=== PATIENT | male | born 1990 | race Hispanic/Latino ===

== ENCOUNTER 2018-11-02 14:35 | Day surgery (SDC) | payer SELFPAY ==
[~2018-11-02 14:35] MED LIST: Dexamethasone 20 MG/5 ML VIAL ONE; Glycopyrrolate 0.2 MG/ML 5 ML SYRINGE ONE; Ketorolac Tromethamine 30 MG/ML VIAL ONE; Ondansetron PF 4 MG/2 ML Vial ONE; PROPOFOL 200 MG/20 ML VIAL ONE; Rocuronium Bromide 10 MG/ML (10ML VIAL) ONE
[2018-11-02] MEDS ORDERED: ISOVUE-370 76%-LOCM 1 ML ONE (15:10)
[2018-11-02 15:47] LABS: #Basophils 0.1 thou/uL (0.0-0.2); #Eosinphils 0.2 thou/uL (0.0-0.7); #Lymphocytes 2.6 thou/uL (1.20-3.40); #Monocytes 0.5 thou/uL (0.11-0.59); #Neutrophils 4.7 thou/uL (1.40-6.50); %Basophils 1.2 % (0.0-1.0); %Eosinophils 2.9 % (0.0-10.0); %Lymphocytes 31.7 % (21.0-51.0); %Neutrophils 58.2 % (42.0-75.0); Mean Corpuscular HGB CONC 34.6 g/dL (32.0-36.0); Mean Corpuscular Hemoglobin 30.7 pg (27.0-31.0); Mean Corpuscular Volume 88.7 fL (78.0-98.0); Mean Platelet Volume 7.1 fL (7.4-10.4); Platelet Count 276 thou/uL (130-400); RBC Distribution Width 12.2 % (11.5-14.5); Red Blood Cell (RBC) Count 5.23 mill/uL (4.70-6.10); White Blood Cell (WBC) Count 8.1 thou/uL (4.8-10.8)
[2018-11-02 16:13] LABS: ALT (SGPT) 31 U/L (8-55); AST (SGOT) 28 U/L (5-34); Albumin 4.4 g/dL (3.5-5.0); Alkaline Phosphatase 122 U/L (40-150); Anion Gap 13 mmol/L (10-20); BUN (Urea Nitrogen) 13 mg/dL (8.9-20.6); Bilirubin, Total 0.6 mg/dL (0.2-1.2); Calc. Creatinine Clearance 0 mL/min (70-130); Calcium 9.5 mg/dL (7.8-10.44); Carbon Dioxide 25 mmol/L (22-29); Chloride 102 mmol/L (98-107); Estimated GFR-MDRD 85; Globulin 3.4 g/dL (2.4-3.5); Glucose 102 mg/dL (70-105); Lipase 33 U/L (8-78); Protein, Total 7.8 g/dL (6.0-8.3); Sodium 136 mmol/L (136-145)
[2018-11-02] MEDS ORDERED: Morphine 4 MG/ML VIAL ONE (16:50)
[2018-11-02] MEDS ORDERED: Ondansetron PF 4 MG/2 ML Vial ONE (16:50)
--- NOTE | 2018-11-02 17:37 | CT ---
FEXAM: Abdomen and pelvic CT scan with contrast: Enteric contrast not administered, precluding reliable assessment of bowel HISTORY: Lower abdominal pain COMPARISON: None FINDINGS: Mild volume loss is present at the lung bases Liver: Unremarkable. Gallbladder:Unremarkable. Pancreas:Unremarkable Spleen:Unremarkable. Adrenal glands:Unremarkable. Kidneys:No renal calculus or acute obstruction.No solid or cystic mass. No evidence for bowel obstruction. Mild colonic diverticulosis. There is a mildly inflamed unopacified appendix at the right lower quadrant with surrounding periappe ndiceal fat stranding, although incompletely assessed without enteric contrast administration. The urinary bladder is unremarkable. No abscess, adenopathy, or abnormal fluid collection within the abdomen or pelvis. IMPRESSION: Evidence of early acute appendicitis. Recommend surgical consultation.
[2018-11-02] MEDS ORDERED: Bupivacaine/Epinephrine 0.25% 30 ML VIAL ONE (18:12)
[2018-11-02] MEDS ORDERED: Piperacillin/Tazobactam 3.375 GM VIAL ONE (18:31)
[2018-11-02] MEDS ORDERED: Fentanyl 100 MCG/2 ML VIAL ONE (18:50)
[2018-11-02] MEDS ORDERED: HYDROcodone/Acetaminophen 5/325 mg Tablet ONE (21:30)
--- NOTE | 2018-11-03 01:11 | HP ---
CHIEF COMPLAINT: Abdominal pain. HISTORY: Mr. Buchanan is a 28-year-old man with a 2-day history of right lower quadrant abdominal pain. The pain was slowly getting worse and making it difficult for him to work. The pain was worse when he tried to move around or walk. He was not able to eat because of the pain, although he denied any nausea or vomiting. He tried taking some stomach medication for it, but this did not help. It only gave him diarrhea. He denies any fevers or chills. He came to the emergency room, where lab work was unremarkable, but he had significant right lower quadrant tenderness. So, a CT scan was obtained and that showed early appendicitis. PAST MEDICAL HISTORY: The patient has no past medical history. PAST SURGICAL HISTORY: None. FAMILY HISTORY: Diabetes in his mother. ALLERGIES: NO KNOWN DRUG ALLERGIES. MEDICATIONS: No outpatient medications. SOCIAL HISTORY: He does not smoke or use illicit drugs. He drinks rarely and not to excess. He works as a cook. LABORATORY DATA: White count is normal at 8.1. Electrolytes and LFTs and lipase are normal. CT images are reviewed and I agree with the written report. The appendix is noncontrast filling and has some periappendiceal stranding without evidence of periappendiceal fluid. ASSESSMENT: Acute appendicitis, likely early. RECOMMENDATIONS: Laparoscopic appendectomy. The diagnosis and recommended treatment were discussed with the patient and his significant other. Inherent risks include, but are not limited to, bleeding, infection, risks of anesthesia, damage to nearby structures including bowel, bladder and blood vessels, need for open surgery or other procedures. He understands and accepts these risks and wishes to proceed. He received [employer] in the emergency room and has been posted for the OR. Job ID: [id number]
--- NOTE | 2018-11-03 09:59 | PDOC.OP ---
Operative Note - Operative Note Operative Note: PROCEDURE: Laparoscopic appendectomy. SURGEON: Katelyn Spencer M.D. DATE OF PROCEDURE: 11/02/2018. PREOPERATIVE DIAGNOSIS: Appendicitis. POSTOPERATIVE DIAGNOSIS: Appendicitis. HISTORY: 28-year-old man who presented with 2 day history of signs and symptoms concerning for appendicitis. CT scan showed evidence of acute appendicitis and laparoscopic appendectomy was recommended. DESCRIPTION OF PROCEDURE: After informed consent was obtained and appropriate antibiotics continued, the patient was taken to the operating room and placed in the supine position and general endotracheal anesthesia was administered. The bladder was decompressed with a Garcias catheter and the abdomen was prepped and draped in the standard sterile fashion. Local anesthesia was infused to the skin and subcutaneous tissues superior to the umbilicus. A transverse skin incision was made and a Veress needle placed into the abdominal cavity and carbon dioxide gas insufflated without difficulty. Opening pressure was less than 5. Carbon dioxide gas was insufflated to an intra-abdominal pressure 15 and the patient tolerated this well. The Veress needle was withdrawn and a [place] port advanced under direct laparoscopic vision into the abdominal cavity. Two additional ports were placed in the suprapubic and left lateral abdomen under direct laparoscopic vision after local anesthesia was infused at these sites. There were no significant adhesions. The appendix was identified and appeared inflamed but not perforated. The appendix was grasped by the mesoappendix and elevated. The mesoappendix was then sequentially ligated and divided down to the base of the appendix, which was normal in appearance and was clearly seen to be at the confluence of the tenia. Two Endoloops were placed around the base of the appendix and the appendix was divided between these Endoloops, placed into an EndoCatch bag and drawn out through the suprapubic incision. The suprapubic trocar was then replaced and the operative site was easily irrigated to clear. The suprapubic trocar was removed and the fascia closed under direct laparoscopic vision with a 0 Vicryl suture on a GraNee needle with excellent technical result. The left lateral trocar was then removed and hemostasis verified. Carbon dioxide gas was desufflated through the umbilical trocar which was then removed. Due to the patient's thin body habitus the umbilical fascia was visible, and was reapproximated with a 0 Vicryl suture on a UR 6 needle under direct vision. The skin incisions were irrigated and additional local anesthesia infused at each site. The skin was closed with 4-0 subcuticular Monocryl sutures and Dermabond dressings were placed. The patient was extubated and taken to the recovery room in good condition. Estimated blood loss was minimal. There were no complications. SPECIMEN: Appendix.
== END 2018-11-02 22:25 | disposition home or self-care (01) ==
LOC: ERS 14:35 → SDC/OP 18:20
PROVIDERS: ATTEND Surgery
PROC: 0DTJ4ZZ Resection of Appendix, Percutaneous Endoscopic Approach (ICD-10-PCS; principal; 2018-11-02)
DX: K35.80 Unspecified acute appendicitis (principal)
CPT/HCPCS: 36415; 74177; 80053; 83690; 85025; 88304; 96361; 96374; 96375; J1100; J1885; J2270; J2405; J2543; J2704; J3010; Q9966